=== PATIENT | female | born 1955 | race Caucasian/White ===

== ENCOUNTER 2017-09-28 09:35 | Day surgery (SDC) | payer MEDICARE, BC ==
--- NOTE | 2017-09-15 20:34 | HP ---
PREOPERATIVE HISTORY AND PHYSICAL: DATE OF ADMISSION/SURGERY: 09/28/17 DATE OF OFFICE VISIT: 09/15/17 ATTENDING SURGEON: Dr. Zoltan aRmírez * (DICTATED BY OLIVERIO LOGAN) PROCEDURE: Right shoulder arthroscopic rotator cuff repair, decompression, debridement, and subpectoral biceps tenodesis. CHIEF COMPLAINT: Right shoulder pain. HISTORY OF PRESENT ILLNESS: Joselyn is a 62-year-old female, who presents to the clinic for right shoulder pain for about a year as she failed conservative measures to include physical therapy, antiinflammatories, ice, and heat, and has therefore agreed to undergo a right shoulder arthroscopic rotator cuff repair, decompression, debridement, and subpectoral biceps tenodesis with Dr. Ramírez on 09/28/17. PAST MEDICAL HISTORY: Asthma, GERD, depression, anxiety, non-Hodgkin's lymphoma , hypertension, positive for MRSA 5 years ago. PAST SURGICAL HISTORY: Cataract surgery, bunion repair, rhinoplasty, two C- sections and a vaginal surgery. Reports some hypotension with anesthesia. MEDICATIONS: 1. Seroquel 50 mg 1 tab by mouth daily for sleep. 2. Benadryl 25 mg p.r.n. as needed. 3. Tylenol 325 mg taken as needed. 4. Melatonin ER 1 mg 1 tab by mouth every day at night. 5. Zyrtec 10 mg 1 by mouth daily. 6. Calcium 600 mg 1 by mouth daily. 7. Albuterol inhaler as needed. 8. Patanol 0.1% 1 drop both eyes every day as needed. 9. Multivitamins 1 by mouth every day. 10. Pulmicort Flexhaler 100 mcg/ACT take 1 puff twice a day. 11. Hydrocortisone 1% use sparingly twice a day x2 weeks as needed. 12. Lorazepam 0.5 mg as needed. ALLERGIES: ASPIRIN, NSAIDs, CAT DANDER, SULFA ANTIBIOTICS, SSRI, DYES FOR THE MRI, LITHIUM, MSG, and NORTRIPTYLINE. FAMILY HISTORY: Positive for heart disease and hypertension in her daughter and cancer in her mother. SOCIAL HISTORY: She lives alone. She is semi-retired. 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 She denies tobacco use. She reports occasional alcohol consumption. She exercises a lot. She is right hand-dominant. She denies illegal drug use. REVIEW OF SYSTEMS: A 14-point review of systems was reviewed with patient. Positive for chills, night sweats, rash, seasonal allergy, hay fever, depression , anxiety, and the current complaint, otherwise negative. Denies fever, chills , chest pain, shortness of breath, history of DVT or PE, or bleeding disorder. PHYSICAL EXAMINATION GENERAL: A 62-year-old, well-developed, well-nourished female in no acute distress. Alert and oriented x3. Appropriate mood and affect. VITAL SIGNS: Height 63.25, weight 150, pulse 72, blood pressure 116/74, respiratory rate 16, temperature 97.0, BMI 26.4. HEENT: Normocephalic, atraumatic, PERRLA. Throat clear. NECK: Supple. PULMONARY: Clear to auscultation bilaterally. No wheezing, rhonchi, or rales. CARDIO: Regular rate and rhythm, S1, S2. No murmurs, gallops, or rubs. No edema. ABDOMEN: Positive bowel sounds, soft, nontender. MUSCULOSKELETAL: Right upper extremity: Skin is intact. No warmth or erythema. Good range of motion. Forward flexion 160, abduction 145, external rotation 60, internal rotation to thoracolumbar spine. Pain with rotator cuff testing and some weakness. Positive Delta's impingement, Kellogg-Ollie, O' Jose Antonio's, Speed's. +2 radial pulse. Sensation intact to light touch distally. DIAGNOSTIC STUDIES: MRI reveals partial thickness tear at the supraspinatus tendon on the articular side as well as SLAP tear with biceps tendinitis. IMPRESSION: Right shoulder rotator cuff tear with biceps tendinitis. PLAN: The patient is scheduled to undergo a right shoulder arthroscopic rotator cuff repair, decompression, debridement, subpectoral biceps tenodesis with Dr. Ramírez on 09/28/17. She will return to the office 10 to 14 days for postoperative followup and suture removal. Percocet and Keflex will be used postoperatively for pain management and antibiotic prophylaxis. OLIVERIO LOGAN [id number]/[facility] #: [id number] [facility]ALKaleb
[~2017-09-28 09:35] MED LIST: Buffered Lidocaine 0.9% SYRIN* 5 ML/SYR SYRINGE INTRADERM ONE
[2017-09-28] MEDS ORDERED: Buffered Lidocaine 0.9% SYRIN* 5 ML/SYR SYRINGE ONE (09:52)
[2017-09-28] MEDS ORDERED: ceFAZolin 2 GM PREMIX (*) 2 GM/50 ML BAG IVPB ONE (09:52)
[2017-09-28] MEDS ORDERED: Propofol* 10 MG/ML 20 ML BTL IV PUSH ONE (09:58)
[2017-09-28] MEDS ORDERED: Dexamethasone IV* 4 MG/ML 1 ML (4 MG) ONE (09:58)
[2017-09-28] MEDS ORDERED: Lidocaine 2% PF * 5 ML VIAL ONE (09:58)
[2017-09-28] MEDS ORDERED: ROPIVACAINE 5 MG/ML 30 ML BTL (0.5%) ONE (09:58)
[2017-09-28] MEDS ORDERED: DiMENhydriNATE IV* 50 MG/ML VIAL ONE (09:58)
[2017-09-28] MEDS ORDERED: Cisatracurium* 2 MG/ML MDV 5 ML ONE (09:58)
[2017-09-28] MEDS ORDERED: Midazolam* 1 MG/ML 10 ML VIAL (10 MG) ONE (09:58)
[2017-09-28] MEDS ORDERED: KETAMINE HCL* 50 MG/ML 10 ML VIAL ONE (09:58)
[2017-09-28] MEDS ORDERED: fentaNYL* 50 MCG/ML 2 ML VIAL (100 MCG VIAL) ONE (09:58)
[2017-09-28] MEDS ORDERED: Bupivacaine 0.25% SDV* 30 ML ONE (10:29)
[2017-09-28] MEDS ORDERED: EPHEDrine (Pressors)* 50 MG/ML VIAL ONE (12:25)
[2017-09-28] MEDS ORDERED: Scopolamine 1.5 mg* PATCH TRANSDERM PRN (12:54)
[2017-09-28] MEDS ORDERED: fentaNYL* 50 MCG/ML 2 ML VIAL (100 MCG VIAL) IV PRN (12:54)
[2017-09-28] MEDS ORDERED: oxyCODONE/Acetamin 5/325 MG* TAB PO PRN (12:54)
[2017-09-28] MEDS ORDERED: PROCHLORPERAZINE INJ 5 MG/ML 2 ML VIAL IV PRN (12:54)
[2017-09-28] MEDS ORDERED: Scopolamine 1.5 mg* PATCH ONE (14:23)
[2017-09-28 15:39] VITALS: BP 104/61
--- NOTE | 2017-09-29 04:56 | OP ---
OPERATIVE REPORT: DATE OF OPERATION: 09/28/17 DATE OF : 53 SURGEON: Zoltan Ramírez MD. EXECUTIVE DIRECTOR: OLIVERIO Taylor An clinical research assistant was needed for the entirety of the case to help with positioning, retraction, and utiliz ed throughout all portions of the case. ANESTHESIOLOGIST: ANESTHESIA: PRE-OP DIAGNOSIS: Right shoulder rotator cuff tear with a superior labral anterior and posterior tea r. POST-OP DIAGNOSES: Mild glenohumeral arthritis with a superior labral anterior and posterior tear an d a high-grade partial thickness articular-sided supraspinatus tear. OPERATIVE PROCEDURES: Right shoulder arthroscopy with: 1. Extensive glenohumeral debridement including chondroplasty. 2. Subacromial decompression with acromioplasty. 3. Arthroscopic biceps tenodesis. 4. Rotator cuff repair in a double-row fashion of the supraspinatus in the anterior portion of the i nfraspinatus. COMPLICATIONS: None. ESTIMATED BLOOD LOSS: Minimal. IMPLANTS USED: Two 4.75 Healicoils, 1 Multifix, and one 2.8 Q-Fix. INDICATIONS: Joselyn Gonzalez is a 62-year-old female who has had right shoulder pain for over a year. She has failed conservative management including physical therapy, antiinflammatories and injection . She was diagnosed with a high-grade partial thickness tear of the supraspinatus tendon as well as as a SLAP tear. Risks and benefits were discussed at length, included but not limited to bleeding, in fection, damage to nerves, vessels, surrounding structures, wound nonhealing, persistent pain, need f or further surgery, scarring, stiffness, incomplete relief of symptoms, and risk of anesthesia. DESCRIPTION OF PROCEDURE: The patient was greeted in the preoperative area by the attending surgeon. The correct extremity was marked and consent was confirmed. The patient then underwent interscalene nerve block by the anesthesiologist, after which she was brought back to the operating suite where s he was placed in supine position on the operating room table and she underwent general anesthesia and endotracheal intubation. She was placed in the left lateral decubitus position with an axillary rol l. All bony prominences were padded and she was supported with a pegboard. The right arm was draped with 10 pounds of traction. The right shoulder was then prepped and draped in the usual sterile fas hion beginning with chlorhexidine soap, scrub, and alcohol wipe and final prep with ChloraPrep. After appropriate surgical pause indicating side, site, procedure, and administration of antibiotics, the standard posterolateral portal was made sharply with 11 blade. Scope was introduced into the baldev int. Joint was examined. There were grade 2 changes and unstable flaps at the glenohumeral joint, s mall areas of grade 3 changes. There was evidence of bicipital tendinopathy as well as tendinitis. There was a high-grade partial thickness tearing with large amount of fraying at the supra and part o f the infraspinatus tendon. The subscapularis was intact, inferior recess intact with synovitis. Th ere was evidence of osteoarthritis, mild in the glenohumeral joint. The anterior portal was made in an outside-in fashion. The shaver was used to debride the glenohumeral joint as well as the anterior , posterior, superior labrum. The biceps tendon was then tacked to the later identified arthroscopic ally the subacromial space. It was then tenotomized from the superior labrum. A shaver was used to debride back the supraspinatus. The fluid and debris was removed from the shoulder and attention was directed to the subacromial space. The scope was positioned in the subacromial space. There was abundant bursa that was present. The l ateral portal was made in an outside-in fashion. The shaver was used to debride back the abundant bu rsa that was present. The bursal side cuff appeared to be intact with some mild fraying, but there w as obviously softening at the level of the high-grade partial thickness tear and along the supraspina tus. A moderate size anterolateral spur was identified, which was then skeletonized using the electr ocautery device and then debrided back using 4-0 oval najma. All the excess bone and debris was remov ed. Attention was directed to the rotator cuff, which was carefully released off the greater tuberos ity. This also helped to identify the bicipital groove and the biceps was identified. The biceps wa s then placed on traction. Through a separate stab incision, the Q-Fix anchor was placed with excell ent purchase. The sutures were then passed in a horizontal mattress with a wraparound suture through the biceps and then tied down using arthroscopic knot tying this up to secure the biceps. The atten tion was then directed to the rotator cuff. The greater tuberosity was then further skeletonized. The rasp was used to rasp the greater tuberosi ty as well as the najma to gently decorticate. Once this was done, 2 anchors, 4.[address] aced through separate stab incisions in the medial row of the humerus and were placed with excellent purchase. The sutures were then passed in a horizontal mattress configuration through the tendon and then tied down using an arthroscopic knot tying technique. Six of the sutures were then passed thro ugh a MultiFix anchor and then secured through a lateral row fixation. Final images were obtained. T he cuff was prepared as well as compressed to the footprint. The wounds were copiously irrigated wit h sterile saline. They were closed with 3-0 nylon. Sterile dressings were applied, Cryo/Cuff, and a n UltraSling. She was awoken from anesthesia and transferred to the PACU in stable condition. POSTOPERATIVE PLAN: She will be nonweightbearing. She will start physical therapy at 4 weeks. She will be discharged with pain medication. DVT prophylaxis was considered, but deferred due to no prev ious personal or family history. I will see the patient back in 10 to 14 days. [id number]/[facility] #: [id number]
[2017-10-01] MEDS ORDERED: Scopolamine PATCH Remove* 1 NOTE MISC PATCH OFF ONE (12:55)
== END 2017-09-28 16:22 | disposition home or self-care (01) ==
LOC: OR 09:35
PROVIDERS: ATTEND Orthopaedic Surgery
DX: M75.101 Unspecified rotator cuff tear or rupture of right shoulder, not specified as traumatic (principal); S43.431A Superior glenoid labrum lesion of right shoulder, initial encounter; J30.81 Allergic rhinitis due to animal (cat) (dog) hair and dander; Z88.8 Allergy status to other drugs, medicaments and biological substances; Z91.041 Radiographic dye allergy status
CPT/HCPCS: A9270-GY; C1713; C1776; J0690; J1100; J1240; J2250; J2704; J2795; J3010

== ENCOUNTER 2018-05-11 23:59 | Emergency (ER) | payer MEDICARE, BC ==
[2018-05-12 01:35] VITALS: BP 123/68
== END 2018-05-12 01:25 | disposition left against medical advice (07) ==
LOC: ED 23:59
DX: R11.2 Nausea with vomiting, unspecified (principal); Z53.21 Procedure and treatment not carried out due to patient leaving prior to being seen by health care provider

== ENCOUNTER 2020-06-28 05:48 | Inpatient (IN) ==
[~2020-06-28 05:48] MED LIST changes: -Buffered Lidocaine 0.9% SYRIN* 5 ML/SYR SYRINGE INTRADERM ONE; +Buffered Lidocaine 1% SYRIN 1 ml INTRADERM ONE; +Lactated Ringers 1000 ml BAG 1,000 ML IV SCH
[2020-06-28] MEDS ORDERED: ceFAZolin 2 GM PREMIX 2 GM/50 ML BAG ONE (05:57)
[2020-06-28] MEDS ORDERED: fentaNYL 100 mcg/2 ml 50 MCG/ML VIAL ONE (07:06)
[2020-06-28] MEDS ORDERED: Midazolam 2 mg/2 ml VIAL 1 mg/ml 2 ml VIAL (2 mg) ONE ×2 (07:06→08:06)
[2020-06-28] MEDS ORDERED: Lidocaine 2% PF 5 ML VIAL ONE (07:06)
[2020-06-28] MEDS ORDERED: Propofol 10 MG/ML 20 ML BTL ONE (07:06)
[2020-06-28] MEDS ORDERED: EPHEDrine (Pressors) 50 MG/ML VIAL ONE (08:07)
[2020-06-28] MEDS ORDERED: Dexamethasone IV 4 MG/ML VIAL 1 ml VIAL ONE (08:13)
[2020-06-28] MEDS ORDERED: Ondansetron 4 mg VIAL 2 MG/ML 2 ml VIAL ONE (08:13)
[2020-06-28] MEDS ORDERED: Phenylephrine IV 10 MG/ML 1 ml VIAL ONE (08:13)
[2020-06-28] MEDS ORDERED: Bupivacaine 0.5% SDV PF 30ML VIAL ONE (08:13)
[2020-06-28] MEDS ORDERED: diPHENhydraMINE IV 50 MG/ML 1 ml VIAL (BENADRYL) IV PRN (09:53)
[2020-06-28] MEDS ORDERED: Lactulose 30 ml UDC PO PRN (09:53)
[2020-06-28] MEDS ORDERED: Ondansetron ODT 4 mg TAB 4 MG TAB PO PRN (09:53)
[2020-06-28] MEDS ORDERED: Ondansetron 4 mg VIAL 2 MG/ML 2 ml VIAL IV PRN ×2 (09:53→10:27)
[2020-06-28] MEDS ORDERED: diPHENhydraMINE 25 mg TAB PO PRN (09:53)
[2020-06-28] MEDS ORDERED: oxyCODONE/Acetamin 5/325 mg TAB PO PRN (09:53)
[2020-06-28] MEDS ORDERED: Magnesium Hydroxide LIQ 30 ML UDC PO PRN (09:53)
[2020-06-28] MEDS ORDERED: Morphine 2 MG/ML SYRINGE IV PRN (09:53)
[2020-06-28] MEDS ORDERED: oxyCODONE/Acetamin 5/325 mg TAB ONE (10:27)
[2020-06-28] MEDS ORDERED: Naloxone 0.4 mg VIAL 0.4 mg/ml 1 ml VIAL IV PRN (10:27)
[2020-06-28] MEDS: Lactated Ringers 1000 ml BAG 1,000 ML IV SCH ×2 (10:54→16:56)
[2020-06-28] MEDS ORDERED: Albuterol HFA INHALER 8 gm MDI INH PRN (11:10)
[2020-06-28] MEDS ORDERED: Lactated Ringers 500 ml BAG 500 ML IV ONE (14:00)
[2020-06-28] MEDS: ceFAZolin 1 GM ADVAN 1 GM in NS 0.9% 50 ML 50 ML IVPB SCH (16:55)
[2020-06-28] MEDS: oxyCODONE/Acetamin 5/325 mg TAB PO PRN (16:56)
[2020-06-28] MEDS: Mometasone 220 MCG MDI INH SCH (19:44)
[2020-06-28] MEDS: Magnesium Hydroxide LIQ 30 ML UDC PO SCH (20:16)
[2020-06-28] MEDS ORDERED: Budesonide NEB 0.5 MG/2 ML NEB.SOLN INH SCH (21:00)
[2020-06-29] MEDS ORDERED: Polyethylene Glycol 3350 17 GM PACKET PO PRN (00:01)
[2020-06-29] MEDS: ceFAZolin 1 GM ADVAN 1 GM in NS 0.9% 50 ML 50 ML IVPB SCH ×2 (00:09→07:38)
[2020-06-29] MEDS: oxyCODONE/Acetamin 5/325 mg TAB PO PRN ×5 (00:13→20:59)
[2020-06-29] MEDS: Lactated Ringers 1000 ml BAG 1,000 ML IV SCH (03:58)
[2020-06-29 06:11] LABS: Hematocrit 24 % (35-47); Hemoglobin 8.1 g/dL (12.0-16.0); Mean Platelet Volume 8.5 fL (7.4-10.4); Platelet Count 122 10^3/uL (150-450)
[2020-06-29 06:30] LABS: BUN/Creatinine Ratio 16.7 (8-20); Calcium 8.3 mg/dL (8.6-10.3); EGFR African American 98.1 (>60); Potassium 4.2 mmol/L (3.5-5.0)
[2020-06-29] MEDS: Vitamin THERAPEUTIC TAB PO SCH (10:30)
[2020-06-29] MEDS: Magnesium Hydroxide LIQ 30 ML UDC PO SCH ×2 (10:30→20:58)
[2020-06-29] MEDS: Mometasone 220 MCG MDI INH SCH (18:11)
[2020-06-30] MEDS: oxyCODONE/Acetamin 5/325 mg TAB PO PRN ×4 (01:02→15:25)
[2020-06-30 05:54] LABS: Hematocrit 27 % (35-47); Hemoglobin 9.2 g/dL (12.0-16.0); Platelet Count 117 10^3/uL (150-450)
[2020-06-30] MEDS: Vitamin THERAPEUTIC TAB PO SCH (09:19)
[2020-06-30] MEDS: Magnesium Hydroxide LIQ 30 ML UDC PO SCH (09:19)
[2020-06-30 11:45] VITALS: BP 104/54
== END 2020-06-30 16:05 | disposition home health service (06) | DRG 470 ==
LOC: AA 05:48 → OBSVTOIN 05:48 → INTOOBSV 05:48 → SSU 09:53
PROVIDERS: ADMIT Orthopaedic Surgery Adult Reconstructive Orthopaedic Surgery; ATTEND Orthopaedic Surgery Adult Reconstructive Orthopaedic Surgery